=== PATIENT | male | born 1950 | race Caucasian/White ===

== ENCOUNTER 2016-11-29 08:12 | Inpatient (IN) | payer OTHER, MEDICARE ==
[~2016-11-29] VITALS: Ht 188 cm; Wt 87.4 kg
[2016-11-29 08:22] VITALS: BP 160/96; PULSE 72; RESP 16; TEMP 98.4; O2SAT 95
[2016-11-29] MEDS ORDERED: ASPI1TAB69 PO (08:29)
[2016-11-29] MEDS ORDERED: MULTTAB67 PO (08:29)
--- NOTE | 2016-11-29 08:49 | PD ---
HPI Chief Complaint: Numbness/Tingling Time Seen by Provider: 08:30 Travel History International Travel<30 days: No Contact w/Intl Traveler<30days: No Traveled to known affect area: No History of Present Illness HPI This is a 66-year-old male who presents to the emergency department with numbness on the right side of his body that started last evening after dinner, intermittent at first constant since he woke up this morning. He's never had symptoms like this before. He does report that he has a little bit of pain in the left shoulder described as a dull ache. He feels generally weak and tired but doesn't have any focal weakness of the right arm or leg. He also feels the numbness in his right chest, abdomen and a little bit in his face although he feels like his extremities are much more pronounced. [facility] Past Medical History Medical History: Denies Significant Hx Diminished Hearing: No Tetanus Vaccination: Unknown Influenza Vaccination: No Past Surgical History Abdominal Surgery: Yes (as child, bilat hernia repair) Social History Alcohol Use: Yes (soc) Tobacco Use: Yes (1/2 ppd) Substance Use: No Allergies-Medications (Allergen,Severity, Reaction): Coded Allergies: No Known Allergies (Unverified , 11/29/16) Reported Meds & Prescriptions Reported Meds & Active Scripts Active Reported Multiple Vitamin 1 Tab 1 Tab PO DAILY Aspirin 81 Mg Tabdr 81 Mg PO EVERY OTHER DAY Review of Systems Except as stated in HPI: all other systems reviewed are Neg Physical Exam Narrative GENERAL:Well appearing, no acute distress SKIN: Focused skin assessment warm and dry. HEAD: Atraumatic. Normocephalic. EYES: Pupils equal and round. No injection or drainage. ENT: Moist mucous membranes NECK: Trachea midline. CARDIOVASCULAR: Regular rate and rhythm. No murmur appreciated. RESPIRATORY: Clear to auscultation. Breath sounds equal bilaterally. GASTROINTESTINAL: Abdomen soft, non-tender, nondistended. MUSCULOSKELETAL: No obvious deformities. NEUROLOGICAL: Awake and alert. No obvious cranial nerve deficits. No dysarthria or aphasia. No upper or lower extremity drift. 5 out of 5 strength in the bilateral upper and lower extremities. No upper extremity ataxia. Poor sharp dull differentiation in the right arm. Proprioception is intact. Decreased sensation to light touch in the right arm and right leg as well as in the right face. PSYCHIATRIC: Appropriate mood and affect; insight and judgment normal. Data Data Last Documented VS Vital Signs Date Time Temp Pulse Resp B/P Pulse Ox O2 Delivery O2 Flow Rate FiO2 11/29/16 08:40 85 16 95 Room Air 11/29/16 08:22 98.4 160/96 Orders Complete Blood Count With Diff (11/29/16 08:38) Comprehensive Metabolic Panel (11/29/16 08:38) ^ Insert Iv (11/29/16 08:38) Ct Brain W/O Iv Contrast(Rout) (11/29/16 ) Troponin I (11/29/16 08:38) Electrocardiogram (11/29/16 ) Aspirin (Aspirin) (11/29/16 09:15) Admit To Inpatient (11/29/16 ) Vital Signs (Adult) Q4H (11/29/16 09:58) Activity Oob With Assistance (11/29/16 09:58) Human Resources Professional / Telemetry .CONTINUOUS (11/29/16 09:58) Diet Regular Basic (11/29/16 Breakfast) Sodium Chlor 0.9% 1000 Ml Inj (Ns 1000 M (11/29/16 09:58) Sodium Chloride 0.9% Flush (Ns Flush) (11/29/16 10:00) Sodium Chloride 0.9% Flush (Ns Flush) (11/29/16 21:00) Ondansetron Inj (Zofran Inj) (11/29/16 10:00) Comprehensive Metabolic Panel (11/30/16 06:00) Complete Blood Count With Diff (11/30/16 06:00) Pt Request For Service (11/29/16 09:58) Ot Request For Service (11/29/16 09:58) St Request For Service (11/29/16 09:58) Scd Bilateral/Knee High SOLE.BID (11/29/16 09:58) Naloxone Inj (Narcan Inj) (11/29/16 10:00) Docusate Sodium-Senna (Shante-Colace) (11/29/16 21:00) Magnesium Hydroxide Liq (Milk Of Magnesi (11/29/16 10:00) Sennosides (Senokot) (11/29/16 10:00) Bisacodyl Supp (Dulcolax Supp) (11/29/16 10:00) Lactulose Liq (Lactulose Liq) (11/29/16 10:00) Inpatient Certification (11/29/16 ) Admit Order (Ed Use Only) (11/29/16 09:57) Consult Neurology (11/29/16 ) Neuro Checks . ORDERED (11/29/16 09:59) Mri Brain W&W/O Contrast (11/29/16 ) Mra Brain W/O Contrast (Cow) (11/29/16 ) Aspirin (Aspirin) (11/30/16 09:00) Labs Laboratory Tests Test 11/29/16 08:48 White Blood Count 11.1 TH/MM3 Red Blood Count 5.51 MIL/MM3 Hemoglobin 16.5 GM/DL Hematocrit 50.1 % Mean Corpuscular Volume 91.0 FL Mean Corpuscular Hemoglobin 29.9 PG Mean Corpuscular Hemoglobin 32.9 % Concent Red Cell Distribution Width 13.4 % Platelet Count 299 TH/MM3 Mean Platelet Volume 7.4 FL Neutrophils (%) (Auto) 68.1 % Lymphocytes (%) (Auto) 18.4 % Monocytes (%) (Auto) 7.0 % Eosinophils (%) (Auto) 3.0 % Basophils (%) (Auto) 3.5 % Neutrophils # (Auto) 7.6 TH/MM3 Lymphocytes # (Auto) 2.0 TH/MM3 Monocytes # (Auto) 0.8 TH/MM3 Eosinophils # (Auto) 0.3 TH/MM3 Basophils # (Auto) 0.4 TH/MM3 CBC Comment DIFF FINAL Differential Comment Sodium Level 140 MEQ/L Potassium Level 3.9 MEQ/L Chloride Level 106 MEQ/L Carbon Dioxide Level 26.4 MEQ/L Anion Gap 8 MEQ/L Blood Urea Nitrogen 13 MG/DL Creatinine 0.75 MG/DL Estimat Glomerular Filtration 105 ML/MIN Rate Random Glucose 118 MG/DL Calcium Level 8.8 MG/DL Total Bilirubin 0.7 MG/DL Aspartate Amino Transf 20 U/L (AST/SGOT) Alanine Aminotransferase 38 U/L (ALT/SGPT) Alkaline Phosphatase 68 U/L Troponin I LESS THAN 0.02 NG/ML Total Protein 6.8 GM/DL Albumin 3.5 GM/DL MDM Medical Decision Making Medical Screen Exam Complete: Yes Emergency Medical Condition: Yes Interpretation(s) EKG: Normal sinus rhythm Mild leukocytosis Electrolytes are reassuring Troponin is normal CT head: No intracranial hemorrhage Differential Diagnosis Hemorrhagic stroke, ischemic stroke, seizure, multiple sclerosis, spinal cord compression Narrative Course This is a 66-year-old male who presents to the emergency department with numbness along the right side of his body. He has objective poor sharp dull discrimination on the right side and decreased sensation on light touch on exam. He was placed on a monitor and an IV was established. EKG was in normal sinus rhythm. Labs are reassuring. CT of the head is negative for intracranial hemorrhage. I spoke to Dr. Fernandez who recommended MRI, MRA and admission for monitoring and neurology evaluation, and suspects that this is likely a thalamic stroke. Physician Communication Physician Communication Discussed with Dr. Quigley and Dr. Fernandez Diagnosis Primary Impression: Numbness Admitting Information Admitting Physician Requests: Admit Lizette Wolfe MD November 29, 2016 08:49
[2016-11-29 08:57] LABS: AUTOMATED NEUTROPHIL # 7.6 TH/MM3 (1.8-7.7); BASOPHIL # 0.4 TH/MM3 (0-0.2); BASOPHIL % 3.5 % (0.0-2.0); EOSINOPHIL # 0.3 TH/MM3 (0-0.4); HEMATOCRIT 50.1 % (39.0-51.0); HEMO FLAGS DIFF FINAL; LYMPH % 18.4 % (9.0-44.0); MEAN CORPUSCULAR HEMOGLOBIN 29.9 PG (27.0-34.0); MEAN CORPUSCULAR HGB CONC 32.9 % (32.0-36.0); NEUT % 68.1 % (16.0-70.0); PLATELET COUNT 299 TH/MM3 (150-450); RED BLOOD COUNT 5.51 MIL/MM3 (4.50-5.90); RED CELL DISTRIBUTION WIDTH 13.4 % (11.6-17.2); WHITE BLOOD COUNT 11.1 TH/MM3 (4.0-11.0)
[2016-11-29 09:04] LABS: CHLORIDE 106 MEQ/L (98-107); POTASSIUM 3.9 MEQ/L (3.5-5.1); SODIUM (NA) 140 MEQ/L (136-145)
[2016-11-29 09:08] LABS: ANION GAP 8 MEQ/L (5-15); BICARBONATE 26.4 MEQ/L (21.0-32.0); BLOOD UREA NITROGEN 13 MG/DL (7-18)
[2016-11-29 09:11] LABS: ALT (GPT) 38 U/L (12-78); AST (GOT) 20 U/L (15-37); GLOMERULAR FILTRATION RATE 105 ML/MIN (>89)
[2016-11-29 09:12] LABS: TOTAL BILIRUBIN ADULT 0.7 MG/DL (0.2-1.0)
[2016-11-29 09:14] LABS: ALKALINE PHOSPHATASE 68 U/L (45-117)
[2016-11-29] MEDS ORDERED: ASPIRIN 325 MG TAB PO ONE (09:15)
--- NOTE | 2016-11-29 09:20 | RADHPO ---
EXAM DATE/TIME: 11/29/2016 09:00 [facility] COMPARISON: No previous studies available for comparison. INDICATIONS : Right-sided body numbness. RADIATION DOSE: 60.64 CTDIvol (mGy) MEDICAL HISTORY : None SURGICAL HISTORY : None. ENCOUNTER: Initial ACUITY: 2 days PAIN SCALE: 0/10 LOCATION: cranial TECHNIQUE: Multiple contiguous axial images were obtained of the head. Using automated exposure control and adj ustment of the mA and/or kV according to patient size, radiation dose was kept as low as reasonably a chievable to obtain optimal diagnostic quality images. FINDINGS: Ventricles and cisterns are of normal size and remote infarcts left external capsule lesion is less b ivette ganglia series no signs of acute infarct, hemorrhage or mass. There is no fracture. CONCLUSION: No fractures. Andres Cabrera MD on November 29, 2016 at 9:18 Board Certified Radiologist. This report was verified electronically.
[2016-11-29] MEDS ORDERED: SODIUM CHLORIDE 0.9% FLUSH 10 ML FLUSH IV FLUSH PRN (10:00)
[2016-11-29] MEDS ORDERED: NALOXONE HCL 0.4 MG/ML AMP IV PRN (10:00)
[2016-11-29] MEDS ORDERED: BISACODYL 10 MG SUPP RECTAL PRN (10:00)
[2016-11-29] MEDS ORDERED: ONDANSETRON HCL 4 MG/2 ML VIAL IVP PRN (10:00)
[2016-11-29] MEDS ORDERED: SENNOSIDES 8.6 MG TAB PO PRN (10:00)
[2016-11-29] MEDS ORDERED: LACTULOSE SYRUP 20 GM/30 ML CUP PO PRN (10:00)
[2016-11-29] MEDS ORDERED: MAGNESIUM HYDROXIDE SUSP 30 ML CUP PO PRN (10:00)
[2016-11-29] MEDS: SODIUM CHLOR 0.9% 1000 ML INJ 1,000 ML IV SCH ×2 (10:37→19:46)
[2016-11-29 10:40] VITALS: BP 174/89; PULSE 56; RESP 16; O2SAT 96
[2016-11-29 12:00] VITALS: BP 163/95; PULSE 62; RESP 20; TEMP 97.8; O2SAT 94
--- NOTE | 2016-11-29 13:24 | HHI.HP ---
[facility] Service [facility] Primary Care Physician Sundeep Cox MD Admission Diagnosis numbness Diagnoses: (1) Numbness Diagnosis: Principal (2) CVA (cerebral vascular accident) Diagnosis: Principal (3) Nicotine dependence Diagnosis: Secondary Travel History International Travel<30 Days: No Contact w/Intl Traveler <30 Da: No Traveled to Known Affected Are: No History of Present Illness Mr. Garcia is a 66-year-old male. He is here secondary to right face, right arm, right leg numbness. He reports some weakness but the weakness is very mild. Symptoms have improved since he had onset of symptoms last night. He reports severe greater than 2 hours after the event. Numbness is persisting. He has had hyperlipidemia in the past, but this is controlled with diet and he no longer takes a statin. She smokes 1/2-1 pack per day. Family history is positive for CVA in his mother, coronary artery disease in his brother, myocardial infarction and CABG in his father. He reports no visual changes. No dizziness is present. No cognitive deficits are present. She's been using an aspirin approximately every other day. His only surgeries include musculoskeletal surgeries. No history of head trauma reported. No other complaints at present. Review of Systems Constitutional: DENIES: Fatigue, Fever, Chills Eyes: DENIES: Blurred vision, Diplopia Ears, nose, mouth, throat: DENIES: Tinnitus, Hearing loss Respiratory: DENIES: Cough, Wheezing, Shortness of breath Cardiovascular: DENIES: Chest pain, Palpitations, Syncope Gastrointestinal: DENIES: Abdominal pain, Black stools, Bloody stools Musculoskeletal: DENIES: Joint pain, Muscle aches, Stiffness Integumentary: DENIES: Abnormal pigmentation Hematologic/lymphatic: DENIES: Bruising Immunologic/allergic: DENIES: Eczema Neurologic: COMPLAINS OF: Paresthesias, DENIES: Localized weakness Psychiatric: DENIES: Anxiety, Confusion Past Family Social History Past Medical History History of hyperlipidemia Past Surgical History Right shoulder rotator cuff repair Anterior cruciate ligament repair Several nonspecified fracture repairs Reported Medications Reported Meds & Active Scripts Active Reported Multiple Vitamin 1 Tab 1 Tab PO DAILY Aspirin 81 Mg Tabdr 81 Mg PO EVERY OTHER DAY Allergies: Coded Allergies: No Known Allergies (Unverified , 11/29/16) Active Ordered Medications Administered Medications Medications (Trade) Dose Ordered Sig/Lise Route PRN Reason Start Time Stop Time Status Last Admin Dose Admin Sodium Chloride (NS 1000 ml Inj) 1,000 ml @ 100 mls/hr Q10H IV 11/29/16 09:58 11/29/16 10:37 Family History Myocardial infarction and CABG and father CVA in mother Coronary artery disease in brother Social History Patient is a smoker, smoking 1/2-1 pack per day. No alcohol abuse No drug abuse Physical Exam Vital Signs Vital Signs Date Time Temp Pulse Resp B/P Pulse Ox O2 Delivery O2 Flow Rate FiO2 11/29/16 12:00 97.8 62 20 163/95 94 11/29/16 10:40 56 16 174/89 96 Room Air 11/29/16 08:40 85 16 95 Room Air 11/29/16 08:22 98.4 72 16 160/96 95 Physical Exam GENERAL: NAD, A&Ox3 SKIN: Warm and dry. HEAD: Normocephalic. EYES: No scleral icterus. No injection or drainage. NECK: Supple, trachea midline. No JVD or lymphadenopathy. CARDIOVASCULAR: Regular rate and rhythm without murmurs, gallops, or rubs. RESPIRATORY: Breath sounds equal bilaterally. No accessory muscle use. GASTROINTESTINAL: Abdomen soft, non-tender, nondistended. MUSCULOSKELETAL: No cyanosis, or edema. NEURO: No weakness is appreciated on the right side. Patient reports some numbness at the leg and arm when touched. No facial droop, no speech deficit, no swallowing difficulty. Laboratory Laboratory Tests Test 11/29/16 08:48 White Blood Count 11.1 Red Blood Count 5.51 Hemoglobin 16.5 Hematocrit 50.1 Mean Corpuscular Volume 91.0 Mean Corpuscular Hemoglobin 29.9 Mean Corpuscular Hemoglobin 32.9 Concent Red Cell Distribution Width 13.4 Platelet Count 299 Mean Platelet Volume 7.4 Neutrophils (%) (Auto) 68.1 Lymphocytes (%) (Auto) 18.4 Monocytes (%) (Auto) 7.0 Eosinophils (%) (Auto) 3.0 Basophils (%) (Auto) 3.5 Neutrophils # (Auto) 7.6 Lymphocytes # (Auto) 2.0 Monocytes # (Auto) 0.8 Eosinophils # (Auto) 0.3 Basophils # (Auto) 0.4 CBC Comment DIFF FINAL Differential Comment Sodium Level 140 Potassium Level 3.9 Chloride Level 106 Carbon Dioxide Level 26.4 Anion Gap 8 Blood Urea Nitrogen 13 Creatinine 0.75 Estimat Glomerular Filtration 105 Rate Random Glucose 118 Calcium Level 8.8 Total Bilirubin 0.7 Aspartate Amino Transf 20 (AST/SGOT) Alanine Aminotransferase 38 (ALT/SGPT) Alkaline Phosphatase 68 Troponin I LESS THAN 0.02 Total Protein 6.8 Albumin 3.5 Result Diagram: 11/29/16 0848 11/29/16 0848 Imaging Last Impressions Head CT 11/29/16 0000 Signed Impressions: Service Date/Time: Sunday, November 29, 2016 09:00 - CONCLUSION: No fractures. Andres Cabrera MD Assessment and Plan Problem List: (1) Numbness ICD Code: R20.0 Status: Acute (2) CVA (cerebral vascular accident) ICD Code: I63.9 Status: Acute (3) Nicotine dependence ICD Code: F17.200 Status: Acute Assessment and Plan Assessment and plan 66-year-old male with possible CVA and history of smoking. Right-sided face numbness Suspected CVA Daily aspirin Neurology consult Follow clinically Neuro checks MRI of brain MRA of brain Patient comes to quit smoking History of hyperlipidemia Resume statin Nicotine dependence Patient counseled to quit Patient declines NicoDerm patch Physician Certification 2 Midnight Certification Type: Admission for Inpatient Services Order for Inpatient Services The services are ordered in accordance with Medicare regulations or non- Medicare payer requirements, as applicable. In the case of services not specified as inpatient-only, they are appropriately provided as inpatient services in accordance with the 2-midnight benchmark. Estimated LOS (days): 2 days is the estimated time the patient will need to remain in the hospital, assuming treatment plan goals are met and no additional complications. Post-Hospital Plan: Home Harjinder Quigley MD November 29, 2016 1:24 pm
--- NOTE | 2016-11-29 13:32 | RADHPO ---
EXAM DATE/TIME: 11/29/2016 12:49 [facility] COMPARISON: No previous studies available for comparison. INDICATIONS : Right sided numbness. MEDICAL HISTORY : None. SURGICAL HISTORY : Inguinal hernia repair. Bilateral knees/Rt shoulder. ENCOUNTER: Initial ACUITY: 2 day PAIN SCORE: 0/10 LOCATION: head TECHNIQUE: Multiplanar, multisequence MRI of the brain was performed without contrast. FINDINGS: CEREBRUM: The ventricles are normal for age. No evidence of midline shift, mass lesion, hemorrhage or acute in farction. No extraaxial fluid collections are seen. The pituitary gland and suprasellar cistern are normal in configuration. WHITE MATTER: Occasional punctate periventricular white matter signal change which appears benign POSTERIOR FOSSA: The cerebellum and brainstem are intact. The 4th ventricle is midline. The cerebellopontine angle is unremarkable. The cerebellar tonsils are normal in position. DIFFUSION IMAGING: No focal areas of restricted diffusion are seen. No evidence of acute infarction. EXTRACRANIAL: The visualized portions of the orbits and paranasal sinuses are unremarkable. CONCLUSION: No acute intracranial findings. Yuri Bowman MD on November 29, 2016 at 13:28 Board Certified Radiologist. This report was verified electronically.
--- NOTE | 2016-11-29 14:30 | RADHPO ---
EXAM DATE/TIME: 11/29/2016 12:49 [facility] COMPARISON: No previous studies available for comparison. INDICATIONS : Right sided numbness. MEDICAL HISTORY : None. SURGICAL HISTORY : Inguinal hernia repair. Bilateral knees. Rt shoulder. ENCOUNTER: Initial ACUITY: 2 day PAIN SCORE: 0/10 LOCATION: head Please note a normal MRA of the brain does not entirely exclude the possibility of a small aneurysm, nor the possibility of distal intracranial vessel disease. TECHNIQUE: 3D time of flight MRA was performed. Source images, multiplanar STS MIP, and 3D volume MIP reconstru ctions were reviewed. FINDINGS: The A1 segment of right anterior cerebral artery is aplastic or severely hypoplastic. There is mild f ocal tapering of the distal right middle cerebral artery is proximal to the bifurcation region. There is no evidence of major vessel occlusion. No aneurysm or vascular malformation is identified. There are no focal left MCA findings to explain right-sided somatic symptomatology CONCLUSION: Mild right MCA stenosis. No acute [place] vascular findings. Yuri Bowman MD on November 29, 2016 at 14:25 Board Certified Radiologist. This report was verified electronically.
[2016-11-29 16:00] VITALS: BP 152/91; PULSE 63; RESP 18; TEMP 98; O2SAT 96
--- NOTE | 2016-11-29 19:24 | EKG ---
Date Performed: 11/29/2016 Time Performed: 08:15:38 PTAGE: 66 years EKG: Sinus rhythm . Lateral ST-T changes are nonspecific Borderline ECG NO PREVIOUS TRACING DOCTOR: Vineet Sawant Interpretating Date/Time 11/29/2016 19:21:51
[2016-11-29] MEDS: DOCUSATE SODIUM 50 MG/SENNA 8.6 MG TAB PO SCH (19:46)
[2016-11-29 20:00] VITALS: BP 155/96; PULSE 59; PULSE 60; RESP 18; TEMP 98.1; O2SAT 96
[2016-11-29] MEDS ORDERED: SODIUM CHLORIDE 0.9% FLUSH 10 ML FLUSH IV FLUSH SCH (21:00)
[2016-11-29] MEDS ORDERED: SODIUM CHLOR 0.9% 1000 ML INJ 1,000 ML IV SCH (21:07)
[2016-11-29] MEDS ORDERED: GLUCAGON 1 MG/ML VIAL OTHER PRN (21:15)
[2016-11-29] MEDS ORDERED: DEXTROSE 50% IN WATER 50 ML VIAL(D50) IV PUSH PRN (21:15)
[2016-11-29] MEDS ORDERED: SODIUM CHLORIDE 0.9% FLUSH 5 ML FLUSH IV FLUSH PRN (21:15)
[2016-11-29] MEDS ORDERED: IOHEXOL 350 MG/ML 10 ML VIAL (for RAD DIAG) IV ONE (22:34)
--- NOTE | 2016-11-29 23:07 | RADHPO ---
EXAM DATE/TIME: 11/29/2016 22:00 [facility] COMPARISON: No previous studies available for comparison. INDICATIONS : Right sided numbness. Abnormal MRA brain, left MCA stenosis. IV CONTRAST: 75 cc Omnipaque 350 (iohexol) IV ; Cumulative dose for multiple exams. RADIATION DOSE: 42.26 CTDIvol (mGy) ; Combined studies MEDICAL HISTORY : None SURGICAL HISTORY : None. ENCOUNTER: Initial ACUITY: 1 day PAIN SCALE: 0/10 LOCATION: cranial TECHNIQUE: Volumetric scanning was performed using a multi-row detector CT scanner. The data was post processed with a variety of visualization algorithms including full volume maximum intensity projection, multi -planar sliding thin slab reformation, curved planar reformation, and surface rendering techniques. Using automated exposure control and adjustment of the mA and/or kV according to patient size, radiat ion dose was kept as low as reasonably achievable to obtain optimal diagnostic quality images. FINDINGS: There is excellent visualization of the major intracranial arteries out to the second-order branch ve ssels. There is no evidence for aneurysm, vessel truncation, and no evidence for vascular malformati on. There is a 50% area of narrowing in the M2 segment for approximately 6 mm in length. The right A1 segment is absent CONCLUSION: 6 mm focal area of approximately 50% stenosis involving the right middle cerebral artery segment just after the middle cerebral bifurcation. Angelo Reina MD on November 29, 2016 at 23:04 Board Certified Radiologist. This report was verified electronically.
--- NOTE | 2016-11-29 23:18 | RADHPO ---
EXAM DATE/TIME: 11/29/2016 22:00 [facility] COMPARISON: No previous studies available for comparison. INDICATIONS : Right sided numbness. IV CONTRAST: 75 cc Omnipaque 350 (iohexol) IV ; Cumulative dose for multiple exams. RADIATION DOSE: 42.26 CTDIvol (mGy) ; Combined studies MEDICAL HISTORY : None SURGICAL HISTORY : None. ENCOUNTER: Initial ACUITY: 1 day PAIN SCALE: 0/10 LOCATION: upper chest Elevated flow velocities and ICA/CCA ratios have been found to correlate with increased degrees of vessel stenosis, calculated as percentage of diameter relative to a normal segment of distal ICA/CCA. TECHNIQUE: Volumetric scanning was performed using a multirow detector CT scanner. The data was post processed with a variety of visualization algorithms including full-volume maximum intensity projection, multip lanar sliding thin-slab reformation, curved-planar reformation, and surface-rendering techniques. Us ing automated exposure control and adjustment of the mA and/or kV according to patient size, radiatio n dose was kept as low as reasonably achievable to obtain optimal diagnostic quality images. FINDINGS: AORTIC ARCH: There is a three-vessel origin of the great vessels from the aorta. No evidence of ostial narrowing. RIGHT CAROTID: The common carotid artery is intact. The carotid bulb has a normal configuration with mild atheroscle rotic disease. The internal carotid artery lumen is smooth without stenosis. The external carotid ar suzan is intact. LEFT CAROTID: The common carotid artery is intact. The carotid bulb has a normal configuration with mild atheroscl erotic disease. The internal carotid artery lumen is smooth without stenosis. The external carotid artery is intact. VERTEBRALS: The vertebral arteries have a slightly asymmetric diameter with the left one being slightly larger. No stenotic lesions are seen. CONCLUSION: Mild atherosclerotic disease in both internal carotid bulbs. No significant two-dimensional stenosis is noted. Angelo Reina MD on November 29, 2016 at 23:16 Board Certified Radiologist. This report was verified electronically.
[2016-11-29 23:28] VITALS: O2SAT 96
[2016-11-30] VITALS (8 sets, daily range): BP systolic 140–160; BP diastolic 79–102; PULSE 56–62; RESP 18–20; TEMP 96.7–97.6; O2SAT 94–96
[2016-11-30] MEDS: INSULIN ASPART SUPPLEMENTAL SCALE SQ SCH ×4 (05:06→21:00)
[2016-11-30 06:33] LABS: AUTOMATED NEUTROPHIL # 5.3 TH/MM3 (1.8-7.7); BASOPHIL # 0.2 TH/MM3 (0-0.2); BASOPHIL % 1.9 % (0.0-2.0); EOSINOPHIL # 0.4 TH/MM3 (0-0.4); EOSINOPHIL % 4.3 % (0.0-4.0); HEMATOCRIT 45.5 % (39.0-51.0); HEMO FLAGS DIFF FINAL; LYMPH % 26.5 % (9.0-44.0); LYMPHOCYTE # 2.4 TH/MM3 (1.0-4.8); MEAN CELL VOLUME 90.3 FL (80.0-100.0); MEAN CORPUSCULAR HGB CONC 34.4 % (32.0-36.0); MONO % 8.3 % (0.0-8.0); PLATELET COUNT 264 TH/MM3 (150-450); RED BLOOD COUNT 5.04 MIL/MM3 (4.50-5.90)
[2016-11-30 06:40] LABS: CHLORIDE 108 MEQ/L (98-107); POTASSIUM 3.7 MEQ/L (3.5-5.1); SODIUM (NA) 142 MEQ/L (136-145)
[2016-11-30 06:48] LABS: ANION GAP 7 MEQ/L (5-15); BICARBONATE 27.3 MEQ/L (21.0-32.0); BLOOD UREA NITROGEN 13 MG/DL (7-18)
[2016-11-30 06:51] LABS: ALT (GPT) 39 U/L (12-78); AST (GOT) 21 U/L (15-37)
[2016-11-30 06:52] LABS: GLOMERULAR FILTRATION RATE 106 ML/MIN (>89)
[2016-11-30 06:54] LABS: ALKALINE PHOSPHATASE 63 U/L (45-117); TOTAL BILIRUBIN ADULT 0.7 MG/DL (0.2-1.0)
--- NOTE | 2016-11-30 07:19 | MB ---
cc: RAYSA LEHMAN M.D. DATE OF CONSULTATION 11/29/2016 REASON FOR CONSULTATION TIA HISTORY OF PRESENT ILLNESS Mr. Garcia is a very nice 66-year-old man previously healthy until yesterday he started noticing transient numbness involving the entire right side of his body including face, arm and leg when he was standing up. If he sits down or lays down, his symptoms would go away. He had it several times yesterday always associated with standing upright. He also had it today. If he lays flat, they go away. He has no weakness. No speech changes. PAST MEDICAL HISTORY Unremarkable MEDICATIONS He takes low-dose Aspirin every other day and a multiple once a day. ALLERGIES None known. NEUROLOGIC EXAMINATION VITAL SIGNS: His blood pressure is 152/91, pulse 63, respiratory rate is 18, temperature 99 degrees. Higher cortical functions are normal. Cranial nerves II-XII are normal in detail. On motor exam, he has got 5/5 strength of all groups in both upper and lower extremities. There is no drift. Sensory exam intact. Reflexes symmetric. CT of the brain is normal. MRI of the brain is normal. MR angiogram of the brain shows some mild stenosis of the right middle cerebral artery. In its distal branch proximal to the bifurcation region, A1 segment of the right JOEL is aplastic as well. LABORATORY DATA White count 11,100, hemoglobin 16.5, hematocrit 50%, platelets 299,000. Sodium is 140, potassium 3.9, chloride 62, CO2 26.4, AST 20, ALT is 30, BUN is 13, creatinine 0.75. EKG is sinus rhythm. IMPRESSION Pure sensory TIA's. I am concerned about the stenosis of the left MCA. RECOMMENDATIONS I would like to get a CT angiogram of the neck to see the carotids as well as the brain to further evaluate the degree of stenosis of the left MCA. We will start him on Plavix 75 mg daily, plus aspirin 81 mg daily. Also obtain a lipid panel for now. We will keep him at bedrest with his head flat. We will also obtain an echocardiogram. Continue to monitor cardiac telemetry, rule out afebrile. We will check a lipid panel. MD MEDARDO Bynum/CESILIA Galicia: 11/29/2016/9:08 PM /7:10 AM
[2016-11-30] MEDS: DOCUSATE SODIUM 50 MG/SENNA 8.6 MG TAB PO SCH ×2 (08:40→19:37)
[2016-11-30] MEDS: ASPIRIN 81 MG CHEW TAB PO SCH (08:41)
[2016-11-30] MEDS: CLOPIDOGREL 75 MG TAB PO SCH (08:41)
[2016-11-30] MEDS: SODIUM CHLORIDE 0.9% FLUSH 5 ML FLUSH IV FLUSH SCH ×2 (08:41→21:00)
[2016-11-30] MEDS: ATORVASTATIN 40 MG TAB PO SCH (08:41)
[2016-11-30] MEDS ORDERED: ASPIRIN 325 MG TAB PO SCH (09:00)
--- NOTE | 2016-11-30 09:39 | HHI.PR ---
Subjective Remarks The patient was resting comfortably in bed. He had no acute complaints. He said he says he still gets symptoms when he stands up. He is looking forward to going home. Family at the bedside. Objective Vitals Vital Signs Date Time Temp Pulse Resp B/P Pulse Ox O2 Delivery O2 Flow Rate FiO2 11/30/16 08:00 97.0 61 18 155/79 94 11/30/16 04:00 96.7 60 20 153/92 96 11/30/16 00:00 96.7 60 18 149/91 96 11/29/16 23:28 96 21 11/29/16 20:00 59 11/29/16 20:00 59 11/29/16 20:00 98.1 60 18 155/96 96 11/29/16 16:00 98.0 63 18 152/91 96 11/29/16 12:00 97.8 62 20 163/95 94 11/29/16 10:40 56 16 174/89 96 Room Air I/O 11/29/16 11/29/16 11/29/16 11/30/16 11/30/16 11/30/16 07:00 15:00 23:00 07:00 15:00 23:00 Intake Total 240 ml Output Total 400 ml Balance -400 ml 240 ml Intake Oral 240 ml Output Urine Total 400 ml # Voids 3 3 # Bowel Movements 1 Result Diagram: 11/30/16 0535 11/30/16 0535 Imaging Last Impressions Neck CTA 11/29/16 0000 Signed Impressions: Service Date/Time: Tuesday, November 29, 2016 22:00 - CONCLUSION: Mild atherosclerotic disease in both internal carotid bulbs. No significant two-dimensional stenosis is noted. Angelo Reina MD Head Magnetic Resonance Angiography 11/29/16 0000 Signed Impressions: Service Date/Time: Tuesday, November 29, 2016 12:49 - CONCLUSION: Mild right MCA stenosis. No acute [place] vascular findings. Yuri Bowman MD Head CTA 11/29/16 0000 Signed Impressions: Service Date/Time: Tuesday, November 29, 2016 22:00 - CONCLUSION: 6 mm focal area of approximately 50%% stenosis involving the right middle cerebral artery segment just after the middle cerebral bifurcation. Angelo Reina MD Head CT 11/29/16 0000 Signed Impressions: Service Date/Time: Tuesday, November 29, 2016 09:00 - CONCLUSION: No fractures. Andres Carbera MD Brain MRI 11/29/16 0000 Signed Impressions: Service Date/Time: Tuesday, November 29, 2016 12:49 - CONCLUSION: No acute intracranial findings. Yuri Bowman MD Objective Remarks GENERAL: NAD, resting comfortably. SKIN: Warm and dry. HEAD: Normocephalic. EYES: No scleral icterus. No injection or drainage. NECK: Supple, trachea midline. No JVD or lymphadenopathy. CARDIOVASCULAR: Regular rate and rhythm without murmurs, gallops, or rubs. RESPIRATORY: Breath sounds equal bilaterally. No accessory muscle use. GASTROINTESTINAL: Abdomen soft, non-tender, nondistended. MUSCULOSKELETAL: No cyanosis, or edema. NEURO: No weakness is appreciated. No facial droop, no speech deficit, no swallowing difficulty. PSYCH: Mood and affect appropriate. Medications and IVs Current Medications Medications (Trade) Dose Ordered Sig/Lise Route Start Time Stop Time Status Last Admin (Zofran Inj) 4 mg Q6H PRN IVP 11/29/16 10:00 (Narcan Inj) 0.4 mg UNSCH PRN IV 11/29/16 10:00 (Shante-Colace) 1 tab BID PO 11/29/16 21:00 11/30/16 08:40 (Milk Of Magnesia Liq) 30 ml Q12H PRN PO 11/29/16 10:00 (Senokot) 17.2 mg Q12H PRN PO 11/29/16 10:00 (Dulcolax Supp) 10 mg DAILY PRN RECTAL 11/29/16 10:00 (Lactulose Liq) 30 ml DAILY PRN PO 11/29/16 10:00 (Lipitor) 40 mg DAILY PO 11/30/16 09:00 11/30/16 08:41 (NS Flush) 2 ml BID IV FLUSH 11/30/16 09:00 11/30/16 08:41 IV Flush 2 ml 2 ml UNSCH PRN IV FLUSH 11/29/16 21:15 (NS 1000 ml Inj) 1,000 ml @ 70 mls/hr [id number] IV 11/29/16 21:07 (Aspirin Chew) 81 mg DAILY PO 11/30/16 09:00 11/30/16 08:41 (Plavix) 75 mg DAILY PO 11/30/16 09:00 11/30/16 08:41 (NovoLOG SUPPLEMENTAL SCALE) 1 ACHS SQ 11/30/16 07:00 (D50w (Vial) Inj) 50 ml UNSCH PRN IV PUSH 11/29/16 21:15 (Glucagon Inj) 1 mg UNSCH PRN OTHER 11/29/16 21:15 A/P Problem List: (1) Numbness ICD Code: R20.0 Status: Acute (2) CVA (cerebral vascular accident) ICD Code: I63.9 Status: Acute (3) Nicotine dependence ICD Code: F17.200 Status: Acute Assessment and Plan Right MCA stenosis The pt's symptoms occur when standing up. CTA revealed: 6 mm focal area of approximately 50% stenosis involving the right middle cerebral artery segment just after the middle cerebral bifurcation. Neurology consult appreciated. MRI brain normal. - Daily aspirin. - check a lipid profile. - follow up with neurology in regards to MCA stenosis. - Neuro checks. - echo pending. Hypertension Blood pressure has been slightly elevated. - Status post permissive hypertension. - Start medications as indicated. - Vasotec as needed. History of hyperlipidemia Previously on a statin but discontinued it s/t lifestyle modifications. - check lipid profile. - Atorvastatin started. Nicotine dependence Patient counseled to quit. - Patient declines NicoDerm patch. PPx: SCDs. Discharge Planning Awaiting further neurology input. Carlos Adam DO November 30, 2016 09:39
[2016-11-30 10:05] LABS: HDL CHOLESTEROL 76.2 MG/DL (40.0-60.0); LDL CHOLESTEROL 101 MG/DL (0-99)
[2016-11-30] MEDS ORDERED: ENALAPRILAT 1.25 MG/ML VIAL IV PUSH PRN (10:30)
[2016-11-30 14:18] LABS: HEMOGLOBIN A1a 1.1 %; HEMOGLOBIN A1b 1.5 %; HEMOGLOBIN Ao 85.5 %; HEMOGLOBIN LA1C 2.1 %; HEMOGLOBIN P3 3.6 %
--- NOTE | 2016-11-30 17:07 | EC ---
Study Study Date:11/30/2016 STUDY CONCLUSIONS SUMMARY LEFT VENTRICLE: The cavity size was normal. Wall thickness was normal. Systolic function was normal. The estimated ejection fraction was in the range of 55% to 60%. Wall motion was normal; there were no regional wall motion abnormalities. If LV function is below 40, please consider prescribing an ACEI or ARB or document rationale for non-use. PROCEDURE DATA STUDY STATUS: Elective. Procedure: Transthoracic echocardiography. Image quality was good. Scanning was performed from the parasternal, apical, and subcostal acoustic windows. Study completion: The patient tolerated the procedure well. Transthoracic echocardiography. M-mode, complete 2D, complete spectral Doppler, and color Doppler. Patient status: Inpatient. CARDIAC ANATOMY LEFT VENTRICLE: The cavity size was normal. Wall thickness was normal. Systolic function was normal. The estimated ejection fraction was in the range of 55% to 60%. Wall motion was normal; there were no regional wall motion abnormalities. AORTIC VALVE: Trileaflet; normal thickness leaflets. Doppler: Transvalvular velocity was within the normal range. There was no stenosis. No regurgitation. AORTA: Aortic root: The aortic root was normal in size. MITRAL VALVE: Structurally normal valve. Doppler: Transvalvular velocity was within the normal range. There was no evidence for stenosis. Trace to mild regurgitation. LEFT ATRIUM: The atrium was normal in size. RIGHT VENTRICLE: The cavity size was normal. Wall thickness was normal. PULMONIC VALVE: Doppler: Transvalvular velocity was within the normal range. There was no evidence for stenosis. No regurgitation. TRICUSPID VALVE: Structurally normal valve. Doppler: Transvalvular velocity was within the normal range. No regurgitation. PULMONARY ARTERY: The main pulmonary artery was normal-sized. Systolic pressure was within the normal range. RIGHT ATRIUM: The atrium was normal in size. PERICARDIUM: There was no pericardial effusion. SYSTEMIC VEINS: Inferior vena cava: The vessel was normal in size. BASIC MEASUREMENTS ADULT Normal Left ventricle LV internal dimension, ED, chordal level, 43.3 mm 43-52 PLAX LV internal dimension, ES, chordal level, 31.4 mm 23-38 PLAX Fractional shortening, chordal level, PLAX *27 % >29 LV posterior wall thickness, ED 7.48 mm IVS/LVPW ratio, ED 1.16 <1.3 Ventricular septum Septal thickness, ED 8.68 mm Aortic valve Leaflet separation 21 mm 15-26 Left atrium Anterior-posterior dimension 32 mm Right ventricle RV internal dimension, ED, PLAX *18.8 mm 19-38 BASIC MEASUREMENTS ADULT Normal Aortic valve Leaflet separation 21 mm 15-26 Aorta Root diameter, ED 31 mm 20-37 DOPPLER MEASUREMENTS ADULT Normal Main pulmonary artery Pressure, S 15 mm Hg =30 Mitral valve Peak E-wave velocity 67.1 cm/s Peak A-wave velocity 75.5 cm/s Peak E/A ratio 0.9 Tricuspid valve Regurgitant peak velocity 157 cm/s Peak RV-RA gradient, S 10 mm Hg Maximal regurgitant velocity 157 cm/s Systemic veins Estimated CVP 5 mm Hg Right ventricle RV pressure, S 15 mm Hg <30 LEGEND: Mean values are shown as u=mean value. Asterisk (*) franco values outside specified normal range. Prepared and signed by Angelo Galeano [id number]
--- NOTE | 2016-11-30 22:40 | HHI.PR ---
Review/Management Diagnosis TIA---resolved Plan continue plavix 75 mg daily and asa 81 mg daily and statin ok from neurology standpoint to discharge home tomorrow follow up with me in office as outpatient in 2 weeks Diagnosis/Plan: Subjective Subjective Comments No acute events reported No recurrent focal numbness Active Medications Current Medications Medications (Trade) Dose Ordered Sig/Lise Route Start Time Stop Time Status Last Admin (Zofran Inj) 4 mg Q6H PRN IVP 11/29/16 10:00 (Narcan Inj) 0.4 mg UNSCH PRN IV 11/29/16 10:00 (Shante-Colace) 1 tab BID PO 11/29/16 21:00 11/30/16 08:40 (Milk Of Magnesia Liq) 30 ml Q12H PRN PO 11/29/16 10:00 (Senokot) 17.2 mg Q12H PRN PO 11/29/16 10:00 (Dulcolax Supp) 10 mg DAILY PRN RECTAL 11/29/16 10:00 (Lactulose Liq) 30 ml DAILY PRN PO 11/29/16 10:00 (Lipitor) 40 mg DAILY PO 11/30/16 09:00 11/30/16 08:41 (NS Flush) 2 ml BID IV FLUSH 11/30/16 09:00 11/30/16 21:00 (NS Flush) 2 ml UNSCH PRN IV FLUSH 11/29/16 21:15 (Aspirin Chew) 81 mg DAILY PO 11/30/16 09:00 11/30/16 08:41 (Plavix) 75 mg DAILY PO 11/30/16 09:00 11/30/16 08:41 (NovoLOG SUPPLEMENTAL SCALE) 1 ACHS SQ 11/30/16 07:00 (D50w (Vial) Inj) 50 ml UNSCH PRN IV PUSH 11/29/16 21:15 (Glucagon Inj) 1 mg UNSCH PRN OTHER 11/29/16 21:15 (Vasotec Inj) 1.25 mg Q6H PRN IV PUSH 11/30/16 10:30 11/30/16 22:11 Allergies Allergies Coded Allergies No Known Allergies (Unverified11/29/16) Exam I&O / VS 11/29/16 11/29/16 11/30/16 15:00 23:00 07:00 Intake Total 240 ml Output Total 400 ml Balance -400 ml 240 ml Intake Oral 240 ml Output Urine Total 400 ml # Voids 3 3 # Bowel Movements 1 Vital Signs Date Time Temp Pulse Resp B/P Pulse Ox O2 Delivery O2 Flow Rate FiO2 11/30/16 20:00 97.2 61 20 160/102 94 11/30/16 19:50 94 11/30/16 16:00 96.8 60 18 143/90 94 11/30/16 12:00 97.6 62 18 140/86 94 11/30/16 08:40 56 11/30/16 08:00 97.0 61 18 155/79 94 11/30/16 08:00 94 21 11/30/16 04:00 96.7 60 20 153/92 96 11/30/16 00:00 96.7 60 18 149/91 96 11/29/16 23:28 96 21 Exam Comments alert, speech normal CN 2-12 normal Motor--11/10 BUE Objective Radiology Results CTA brain--focal stenosis right MCA CTA neck--no significant stenosis Micro and Labs Laboratory Tests Test 11/30/16 05:35 White Blood Count 9.0 Red Blood Count 5.04 Hemoglobin 15.7 Hematocrit 45.5 Mean Corpuscular Volume 90.3 Mean Corpuscular Hemoglobin 31.0 Mean Corpuscular Hemoglobin 34.4 Concent Red Cell Distribution Width 13.0 Platelet Count 264 Mean Platelet Volume 7.6 Neutrophils (%) (Auto) 59.0 Lymphocytes (%) (Auto) 26.5 Monocytes (%) (Auto) 8.3 Eosinophils (%) (Auto) 4.3 Basophils (%) (Auto) 1.9 Neutrophils # (Auto) 5.3 Lymphocytes # (Auto) 2.4 Monocytes # (Auto) 0.7 Eosinophils # (Auto) 0.4 Basophils # (Auto) 0.2 CBC Comment DIFF FINAL Differential Comment Sodium Level 142 Potassium Level 3.7 Chloride Level 108 Carbon Dioxide Level 27.3 Anion Gap 7 Blood Urea Nitrogen 13 Creatinine 0.74 Estimat Glomerular Filtration 106 Rate Random Glucose 101 Hemoglobin A1c 5.7 Calcium Level 8.4 Total Bilirubin 0.7 Aspartate Amino Transf 21 (AST/SGOT) Alanine Aminotransferase 39 (ALT/SGPT) Alkaline Phosphatase 63 Total Protein 6.3 Albumin 3.2 Triglycerides Level 59 Cholesterol Level 189 LDL Cholesterol 101 HDL Cholesterol 76.2 Cholesterol/HDL Ratio 2.48 Steffen Fernandez PhD November 30, 2016 22:39
[2016-12-01] VITALS: BP 147/94; PULSE 54; RESP 20; TEMP 96.3; O2SAT 97
[2016-12-01 04:00] VITALS: BP 143/87; PULSE 55; RESP 20; TEMP 97; O2SAT 94
[2016-12-01] MEDS: INSULIN ASPART SUPPLEMENTAL SCALE SQ SCH (06:12)
[2016-12-01 08:00] VITALS: BP 154/97; PULSE 62; RESP 20; TEMP 96.2; O2SAT 93
[2016-12-01 08:05] VITALS: PULSE 56
[2016-12-01] MEDS: DOCUSATE SODIUM 50 MG/SENNA 8.6 MG TAB PO SCH (08:10)
[2016-12-01] MEDS: SODIUM CHLORIDE 0.9% FLUSH 5 ML FLUSH IV FLUSH SCH (08:11)
[2016-12-01] MEDS: CLOPIDOGREL 75 MG TAB PO SCH (08:11)
[2016-12-01] MEDS: ASPIRIN 81 MG CHEW TAB PO SCH (08:11)
[2016-12-01] MEDS: ATORVASTATIN 40 MG TAB PO SCH (08:11)
[2016-12-01] MEDS ORDERED: CLOPIDOGREL 75 MG TAB PO SCH (08:15)
[2016-12-01] MEDS ORDERED: ATOR40TA16 PO (08:19)
[2016-12-01] MEDS ORDERED: PLAV75TA29 PO (08:19)
[2016-12-01] MEDS ORDERED: ASPI81CH25 PO (08:19)
--- NOTE | 2016-12-01 08:20 | HHI.DCPOC ---
Discharge Care Plan Diagnosis: (1) CVA (cerebral vascular accident) (2) Nicotine dependence (3) Numbness Goals to Promote Your Health * To prevent worsening of your condition and complications * To maintain your health at the optimal level Directions to Meet Your Goals Take your medications as prescribed Follow your dietary instruction Follow activity as directed Keep your appointments as scheduled Take your immunizations and boosters as scheduled If your symptoms worsen call your PCP, if no PCP go to Urgent Care Center or Emergency Room Smoking is Dangerous to Your Health. Avoid second hand smoke Call the 24-hour hour crisis hotline for domestic abuse at Carlos Adam DO December 01, 2016 08:19
--- NOTE | 2016-12-01 08:27 | HHI.PR ---
Subjective Remarks The pt was eager to go home. He had no acute complaints. He wanted to clarify which medications he should be taking. Discussed with nursing. Objective Vitals Vital Signs Date Time Temp Pulse Resp B/P Pulse Ox O2 Delivery O2 Flow Rate FiO2 12/01/16 04:00 97.0 55 20 143/87 94 12/01/16 00:00 96.3 54 20 147/94 97 11/30/16 20:00 97.2 61 20 160/102 94 11/30/16 20:00 61 11/30/16 19:50 94 11/30/16 16:00 96.8 60 18 143/90 94 11/30/16 12:00 97.6 62 18 140/86 94 11/30/16 08:40 56 I/O 11/30/16 11/30/16 11/30/16 12/01/16 12/01/16 12/01/16 07:00 15:00 23:00 07:00 15:00 23:00 Intake Total 240 ml 752 ml 720 ml 0 ml Balance 240 ml 752 ml 720 ml 0 ml Intake Oral 240 ml 750 ml 720 ml 0 ml IV Total 2 ml 0 ml # Voids 3 5 3 1 # Bowel Movements 1 0 0 Result Diagram: 11/30/16 0535 11/30/16 0535 Imaging Last Impressions Neck CTA 11/29/16 0000 Signed Impressions: Service Date/Time: Tuesday, November 29, 2016 22:00 - CONCLUSION: Mild atherosclerotic disease in both internal carotid bulbs. No significant two-dimensional stenosis is noted. Angelo Reina MD Head Magnetic Resonance Angiography 11/29/16 0000 Signed Impressions: Service Date/Time: Tuesday, November 29, 2016 12:49 - CONCLUSION: Mild right MCA stenosis. No acute [place] vascular findings. Yuri Bowman MD Head CTA 11/29/16 0000 Signed Impressions: Service Date/Time: Tuesday, November 29, 2016 22:00 - CONCLUSION: 6 mm focal area of approximately 50%% stenosis involving the right middle cerebral artery segment just after the middle cerebral bifurcation. Angelo Reina MD Head CT 11/29/16 0000 Signed Impressions: Service Date/Time: Tuesday, November 29, 2016 09:00 - CONCLUSION: No fractures. Andres Cabrera MD Brain MRI 11/29/16 0000 Signed Impressions: Service Date/Time: Tuesday, November 29, 2016 12:49 - CONCLUSION: No acute intracranial findings. Yuri Bowman MD Objective Remarks GENERAL: NAD, resting comfortably. SKIN: Warm and dry. HEAD: Normocephalic. EYES: No scleral icterus. No injection or drainage. NECK: Supple, trachea midline. No JVD or lymphadenopathy. CARDIOVASCULAR: Regular rate and rhythm without murmurs, gallops, or rubs. RESPIRATORY: Breath sounds equal bilaterally. No accessory muscle use. GASTROINTESTINAL: Abdomen soft, non-tender, nondistended. MUSCULOSKELETAL: No cyanosis, or edema. NEURO: No weakness is appreciated. No facial droop, no speech deficit, no swallowing difficulty. PSYCH: Mood and affect appropriate. Medications and IVs Current Medications Medications (Trade) Dose Ordered Sig/Lise Route Start Time Stop Time Status Last Admin (Zofran Inj) 4 mg Q6H PRN IVP 11/29/16 10:00 (Narcan Inj) 0.4 mg UNSCH PRN IV 11/29/16 10:00 (Shante-Colace) 1 tab BID PO 11/29/16 21:00 11/30/16 08:40 (Milk Of Magnesia Liq) 30 ml Q12H PRN PO 11/29/16 10:00 (Senokot) 17.2 mg Q12H PRN PO 11/29/16 10:00 (Dulcolax Supp) 10 mg DAILY PRN RECTAL 11/29/16 10:00 (Lactulose Liq) 30 ml DAILY PRN PO 11/29/16 10:00 (Lipitor) 40 mg DAILY PO 11/30/16 09:00 12/01/16 08:11 (NS Flush) 2 ml BID IV FLUSH 11/30/16 09:00 12/01/16 08:11 (NS Flush) 2 ml UNSCH PRN IV FLUSH 11/29/16 21:15 (Aspirin Chew) 81 mg DAILY PO 11/30/16 09:00 12/01/16 08:11 (Plavix) 75 mg DAILY PO 11/30/16 09:00 12/01/16 08:11 (NovoLOG SUPPLEMENTAL SCALE) 1 ACHS SQ 11/30/16 07:00 (D50w (Vial) Inj) 50 ml UNSCH PRN IV PUSH 11/29/16 21:15 (Glucagon Inj) 1 mg UNSCH PRN OTHER 11/29/16 21:15 (Vasotec Inj) 1.25 mg Q6H PRN IV PUSH 11/30/16 10:30 11/30/16 22:11 A/P Problem List: (1) Numbness ICD Code: R20.0 Status: Acute (2) CVA (cerebral vascular accident) ICD Code: I63.9 Status: Acute (3) Nicotine dependence ICD Code: F17.200 Status: Acute Assessment and Plan Right MCA stenosis The pt's symptoms occur when standing up. CTA revealed: 6 mm focal area of approximately 50% stenosis involving the right middle cerebral artery segment just after the middle cerebral bifurcation. Neurology consult appreciated. MRI brain normal. Echo with normal EF, no wall motion abnormalities. - Daily aspirin, Plavix, statin. - follow up with neurology in two weeks. - Neuro checks. Hypertension Blood pressure has been slightly elevated. - Status post permissive hypertension. - Start lisinopril 10 mg daily. - Vasotec as needed. History of hyperlipidemia Previously on a statin but discontinued it s/t lifestyle modifications. LDL was 101. - Atorvastatin started. Nicotine dependence Patient counseled to quit. - Patient declines NicoDerm patch. PPx: SCDs. Discharge Planning D/c home. Carlos Adam DO December 01, 2016 08:27
== END 2016-12-01 09:00 | disposition home or self-care (01) | DRG 66 ==
LOC: PHED 08:12 → PHEDA 09:59 → PH3B 11:04
PROVIDERS: ADMIT Hospitalist; ATTEND Hospitalist
DX: I63.9 Cerebral infarction, unspecified (principal); I10 Essential (primary) hypertension; E78.5 Hyperlipidemia, unspecified; R20.0 Anesthesia of skin; F17.210 Nicotine dependence, cigarettes, uncomplicated; Z82.3 Family history of stroke; Z82.49 Family history of ischemic heart disease and other diseases of the circulatory system
CPT/HCPCS: 70450; 70496; 70498; 70544; 70551; 80053; 80061; 82948; 83036; 84484; 85025; 93005; 93306; 99285; J7030; Q9967